=== PATIENT | male | born 2000 | race Caucasian/White ===

== ENCOUNTER 2023-11-12 23:47 | Emergency (ER) | payer BC ==
[2023-11-13 00:02] VITALS: BP 139/84; PULSE 88; RESP 18; TEMP 98.4; BMI 14.5
== END 2023-11-13 02:53 | disposition home or self-care (01) ==
LOC: JER 23:47
DX: R19.7 Diarrhea, unspecified (principal); F17.298 Nicotine dependence, other tobacco product, with other nicotine-induced disorders; R61 Generalized hyperhidrosis; R25.1 Tremor, unspecified
CPT/HCPCS: 99283-25